=== PATIENT | female | born 1990 | race Two or more races ===

== ENCOUNTER 2018-08-29 13:21 | Outpatient (CLI) | payer BC ==
[~2018-08-29] VITALS: Ht 152.4 cm; Wt 70.0 kg
[2018-08-29] MEDS ORDERED: PREN1TAB60 PO (13:28)
[2018-08-29 13:33] VITALS: BP 96/60
== END 2018-08-29 16:19 | disposition home or self-care (01) ==
LOC: LDOP 13:21
PROVIDERS: ATTEND Obstetrics & Gynecology
DX: O62.8 Other abnormalities of forces of labor (principal); Z3A.37 37 weeks gestation of pregnancy
CPT/HCPCS: 59025; 99211; G0463

== ENCOUNTER 2018-08-30 07:42 | Inpatient (IN) | payer BC ==
[~2018-08-30] VITALS: Ht 152.4 cm; Wt 70.0 kg
[~2018-08-30 07:42] MED LIST: PREN1TAB60 PO
[2018-08-30 08:00] VITALS: BP 102/61
[2018-08-30] MEDS ORDERED: OXYTOCIN 30U/ 0.9% NaCL 500ML 500 ML IV ONE (10:22)
[2018-08-30] MEDS ORDERED: ONDANSETRON 2MG/ML, 2ML IVPush PRN (10:30)
[2018-08-30 10:43] LABS: BASOPHILS # (AUTO) 0.03 x10^3/uL (0-0.1); BASOPHILS % (AUTO) 0 % (0-1); EOSINOPHILS # (AUTO) 0.08 x10^3/uL (0-0.4); EOSINOPHILS % (AUTO) 1 % (1-7); LYMPHOCYTES # (AUTO) 2.06 x10^3/uL (1-3.4); LYMPHOCYTES % (AUTO) 18 % (22-44); MD NO; MEAN CORPUSCULAR HEMOGLOBIN 29.9 pg (27.0-34.8); MEAN CORPUSCULAR HGB CONC 32.6 g/dL (32.4-35.8); MEAN CORPUSCULAR VOLUME 91.8 fL (80-100); MEAN PLATELET VOLUME 7.6 fL (7.4-10.4); MONOCYTES # (AUTO) 0.66 x10^3/uL (0.2-0.8); MONOCYTES % (AUTO) 6 % (2-9); NEUTROPHILS # (AUTO) 8.44 x10^3/uL (1.8-6.8); NEUTROPHILS % (AUTO) 75 % (42-75); PLATELET COUNT 281 x10^3/uL (130-400); RED BLOOD COUNT 3.74 x10^6/uL (3.82-5.3)
[2018-08-30] MEDS ORDERED: NEWBORN KIT ONE (11:07)
[2018-08-30] MEDS ORDERED: OXYTOCIN 30U/ 0.9% NaCL 500ML 500 ML ONE ×2 (13:48→19:26)
[2018-08-30] MEDS ORDERED: FENTANYL PF 100 MCG/2ML ONE ×3 (13:54→20:47)
[2018-08-30] MEDS: FENTANYL PF 100 MCG/2ML IVPush PRN ×3 (13:55→20:49)
[2018-08-30] MEDS: LACTATED RINGERS 1,000 ML IV SCH ×2 (17:59→18:22)
[2018-08-30] MEDS ORDERED: MEASLES,MUMPS&RUBELLA VACC/PF 0.5 ML SQ PRN (21:30)
[2018-08-30] MEDS ORDERED: OXYcodone/APAP 5/325MG TABLET PO PRN ×2 (21:30)
[2018-08-30] MEDS ORDERED: ACETAMINOPHEN 325 MG TABLET PO PRN (21:30)
[2018-08-30] MEDS ORDERED: CARBOPROST TROMETHAMINE 250 MCG/ML, 1ML IM PRN (21:30)
[2018-08-30] MEDS ORDERED: MISOPROSTOL 200 MCG TABLET PR PRN (21:30)
[2018-08-30] MEDS ORDERED: METHYLERGONOVINE 0.2 MG/ML IM PRN (21:30)
[2018-08-30] MEDS ORDERED: DOCUSATE 100 MG CAPSULE PO PRN (21:30)
[2018-08-30] MEDS ORDERED: RHOGAM FROM BLOOD BANK 1 NOTE EA IM/IV ONE (21:30)
[2018-08-30] MEDS ORDERED: DIPH,PERTUSS(ACELL),TET VAC/PF NC IM-VACC PRN (21:30)
[2018-08-30] MEDS ORDERED: IBUPROFEN 600 MG TABLET ONE (22:11)
[2018-08-30] MEDS ORDERED: OXYcodone/APAP 5/325MG TABLET ONE (22:11)
[2018-08-30] MEDS: IBUPROFEN 600 MG TABLET PO PRN (23:35)
[2018-08-31 00:15] VITALS: BP 94/51
[2018-08-31 04:00] VITALS: BP 95/53
[2018-08-31 06:37] LABS: MEAN CORPUSCULAR HEMOGLOBIN 30.5 pg (27.0-34.8); MEAN CORPUSCULAR HGB CONC 33.2 g/dL (32.4-35.8); MEAN PLATELET VOLUME 7.8 fL (7.4-10.4); PLATELET COUNT 277 x10^3/uL (130-400); RED BLOOD COUNT 3.89 x10^6/uL (3.82-5.3); RED CELL DISTRIBUTION WIDTH 13.9 % (9.6-15.2)
[2018-08-31] MEDS: OXYTOCIN 30U/ 0.9% NaCL 500ML 500 ML IV SCH ×3 (07:04→17:04)
[2018-08-31 07:25] VITALS: BP 92/54
[2018-08-31] MEDS: IBUPROFEN 600 MG TABLET PO PRN ×2 (08:00→14:31)
[2018-08-31] MEDS: PRENATAL VIT/IRON/FA 1 EACH TABLET PO SCH (08:00)
[2018-08-31 08:23] LABS: MD YES
[2018-08-31 08:41] LABS: BAND#(MANUAL) 1.27 x10^3/uL; BANDS%(MANUAL) 6 % (0-7); LYMPH#(MANUAL) 3.39 x10^3/uL (1-3.4); LYMPHS% (MANUAL) 16 % (22-44); MONOS#(MANUAL) 2.12 x10^3/uL (0.3-2.7); MONOS% (MANUAL) 10 % (2-9); SEG#(MANUAL) 14.42 x10^3/uL (1.8-6.8); SEGS% (MANUAL) 68 % (42-75)
[2018-08-31] MEDS: LACTATED RINGERS 1,000 ML IV SCH ×2 (09:00→17:00)
[2018-08-31 09:08] LABS: <PLATELET ESTIMATE> ADEQUATE; <PLT MORPHOLOGY> NORMAL PLT MORPH; <RBC MORPHOLOGY> NORMAL
[2018-08-31 12:20] VITALS: BP 92/59
[2018-08-31 17:10] VITALS: BP 92/58
[2018-08-31 19:45] VITALS: BP 95/60
[2018-09-01] MEDS: LACTATED RINGERS 1,000 ML IV SCH ×2 (01:00→09:00)
[2018-09-01] MEDS: OXYTOCIN 30U/ 0.9% NaCL 500ML 500 ML IV SCH ×2 (03:04→13:04)
[2018-09-01 06:55] VITALS: BP 91/62
[2018-09-01] MEDS: IBUPROFEN 600 MG TABLET PO PRN (07:28)
[2018-09-01] MEDS ORDERED: IBUP-1222 PO (07:38)
[2018-09-01] MEDS: PRENATAL VIT/IRON/FA 1 EACH TABLET PO SCH (09:00)
== END 2018-09-01 13:39 | disposition home or self-care (01) | DRG 807 ==
LOC: LDOP 07:42 → LDIP 10:25 → 2NW 08-31 00:06
PROVIDERS: ADMIT Obstetrics & Gynecology; ATTEND Obstetrics & Gynecology
PROC: 10E0XZZ Delivery of Products of Conception, External Approach (ICD-10-PCS; principal; 2018-08-30)
DX: O80 Encounter for full-term uncomplicated delivery (principal); Z37.0 Single live birth; Z3A.37 37 weeks gestation of pregnancy
CPT/HCPCS: 36415; 85025; 86850; 86900; G0378; J3010; J2590; J7120